=== PATIENT | female | born 1990 | race Hispanic/Latino ===

== ENCOUNTER 2016-04-26 13:15 | Emergency (ER) | payer BC ==
[2016-04-26 15:41] LABS: Bilirubin Negative (Negative); Blood, Urine Moderate (Negative); Glucose, Urine (Dipstick) Negative (Negative); Ketone, Urine Negative (Negative); Nitrite Negative (Negative); Protein, Urine (Dipstick) Negative (Neg-Trace); Urobilinogen 0.2 mg/dL (0.2-1.0)
[2016-04-26 15:48] LABS: Bacteria/HPF 1+ HPF (None Seen); RBC/HPF 0-3 HPF (0-3); Squamous Epithelial 0-3 HPF (0-3); WBC/HPF 0-3 HPF (0-3)
--- NOTE | 2016-04-26 16:53 | ERRECORD ---
[facility] EMERGENCY RECORD HPI VAGINAL BLEEDING (15:22 DHAM) CHIEF COMPLAINT: Patient presents for evaluation of vaginal bleeding. HISTORIAN: History provided by patient. LOCATION: No localizing symptoms. QUALITY: Bleeding quality described as bright red, no clots, no tissue, Pads saturated in 24 hours: 1, no pain at all. SEVERITY: Current severity of pain rated as 0/10. TIME COURSE: Sudden onset of symptoms, 3, hours prior to arrival, Symptoms have resolved, spotted "about a month ago" after intercourse. ASSOCIATED WITH: No associated symptoms. MODIFYING FACTORS: Patient , Last period date: 11/14/2015, Estimated Estimated Conception: 11/28/2015 Estimated Due date: 08/20/2016 Estimated age: 23 weeks, 3 days, Patient known to be , Patient 2nd or 3rd Trimester, : 0, Para: 0. EXACERBATED BY: Patient's condition exacerbated by nothing. RELIEVED BY: Patient's condition relieved by time. RISK FACTORS: Ectopic risk factors:, not applicable for this patient. ROS (15:25 DHAM) CONSTITUTIONAL: Negative constitutional review of systems, Historian denies chills, denies fatigue, denies fever. EYES: Negative eye review of systems. ENT: Negative ears, nose, throat review of systems. CARDIOVASCULAR: Negative cardiovascular review of systems, Historian denies chest pain, denies diaphoresis, denies exercise intolerance, denies palpitations. RESPIRATORY: Negative respiratory review of systems, Historian denies cough, denies shortness of breath, denies sputum, denies wheezing. GI: Negative gastrointestinal review of systems, Historian denies abdominal pain, denies anorexia, denies appetite changes, denies nausea, denies vomiting. GENITOURINARY FEMALE: Historian denies dysuria, denies frequency, denies hesitancy, reports vaginal bleeding, denies vaginal discharge, denies vaginal itching. passed "about a 1/2 cup of bright red blood" but just spotting the next hour and has stopped now. Still good movement. No sexual activity in the last month as she did spot about one month ago after intercourse. MUSCULOSKELETAL: Negative musculoskeletal review of systems, Historian denies arthralgias, denies injury, denies myalgias. SKIN: Negative skin review of systems, Historian denies rash, denies skin lesions. NEUROLOGIC: Negative neurologic review of systems, Historian denies confusion, denies headache. ENDOCRINE: Negative endocrine review of systems. HEMO/LYMPHATIC: Historian denies abnormal blood clotting, denies anemia, denies easy bruising, denies gum bleeding. &a-1R&a+25V*p+0X*g9094E*c202B*c15G*c2P*p-0X&a-25V&a+1R Name: Alyssa Warner : 1990 F26 MedRec: [id number] AcctNum: [id number] Prepared: Sat Apr 26, 2016 16:50 by Interface Page 1 of 4 pMD [facility] EMERGENCY RECORD ALLERGIC/IMMUNOLOGIC: Historian denies eczema, denies frequent infections, denies hives. PAST MEDICAL HISTORY MEDICAL HISTORY: No past medical history. (13:28 RHIC) FEMALE SURGICAL HISTORY: Patient has no surgical history. (13:28 RHIC) PSYCHIATRIC HISTORY: No previous psychiatric history. (13:28 RHIC) SOCIAL HISTORY: Patient denies alcohol use, Patient denies drug use, Patient has no smoking history. (13:28 RHIC) NOTES: I have reviewed the nursing documentation regarding PMHX, social hx, family hx, and surgical history as well as vitals and triage notes and agree. (15:29 [facility]) KNOWN ALLERGIES No Known Drug Allergies CURRENT MEDICATIONS No recorded medications VITAL SIGNS VITAL SIGNS: BP: 118/77, Pulse: 114, Resp: 20, Pain: 0, O2 sat: 99 on Room Air, Time: 04/26/2016 13:21. (13:21 RHIC) Pulse: 95, Pain: 0, O2 sat: 100, Time: 04/26/2016 13:30. (13:30 RHIC) BP: 109/72, Pulse: 98, Resp: 20, Pain: 0, O2 sat: 99 on Room Air, Time: 04/26/2016 14:19. (14:19 AHOO) BP: 104/74, Pulse: 97, Resp: 18, Pain: 0, O2 sat: 97 on Room Air, Time: 04/26/2016 15:18. (15:18 AHOO) BP: 104/72, Pulse: 93, Resp: 18, Temp: 96.8 (Oral), Pain: 0, O2 sat: 97 on Room Air, Time: 04/26/2016 16:37. (16:37 AHOO) PHYSICAL EXAM (15:46 DHAM) CONSTITUTIONAL: Vital Signs Reviewed, Patient afebrile, Pulse normal, Blood pressure normal, Respiratory rate normal, Normal pulse oximetry, Patient appears non toxic, Patient appears pain free, Patient alert and oriented to person, place and time, Nursing notes reviewed. HEAD: Head exam included findings of head atraumatic, normocephalic. EYES: Eye exam included findings of eyelids normal to inspection, Pupils equally round and reactive to light, Extraocular muscles intact, Conjunctiva normal, Sclera normal, Eye exam included findings of anterior chamber clear. ENT: Ear exam normal, Nose exam normal, Pharynx exam normal, Uvula exam normal, Tonsil exam normal, Mouth exam normal, mucous membranes moist, no drooling, no lesions, no lacerations, no tongue elevation. NECK: Neck exam included findings of normal range of motion, Trachea midline, Thyroid normal, no meningeal signs, no cervical &a-1R&a+25V*p+0X*l3935Z*c202B*c15G*c2P*p-0X&a-25V&a+1R Name: Alyssa Warner : 1990 F26 MedRec: [id number] AcctNum: [id number] Prepared: Sat Apr 26, 2016 16:50 by Interface Page 2 of 4 pMD [facility] EMERGENCY RECORD adenopathy, no tenderness. RESPIRATORY CHEST: Breath sounds clear, No wheezing, No rales, No rhonchi. CARDIOVASCULAR: Cardiovascular exam included findings of heart rate regular rate and rhythm, Heart sounds normal, normal S1, normal S2, no murmurs, no rub, no gallop. ABDOMEN FEMALE: Abdominal exam included findings of abdomen nontender, Bowel sounds normal, Liver normal, Spleen normal, no distension, no pulsatile masses, no peritoneal signs, no rigidity, no guarding, no rebound, normal, nontender, 24 week fundus. fht is 155. GENITOURINARY FEMALE: External genitalia normal. PELVIC: Pelvic exam normal, Speculum exam normal, no active bleeding, no lesions, no lacerations, no discharge, mildly friable appearing cervix, Bimanual exam abnormal, bimanual exam not performed. no cervical samples obtained, Urethral exam normal, no blood at meatus, no lesions, no edema, no prolapse, Exam findings include no complain of lower abdominal pain, no vaginal bleeding present, no blood in the vault. cervix appears closed. BACK: Back exam included findings of normal inspection, range of motion normal, no tenderness, no costovertebral angle tenderness. UPPER EXTREMITY: Upper extremity exam normal. LOWER EXTREMITY: Lower extremity exam normal. NEURO: Neuro exam normal. SKIN: Skin exam included findings of skin warm, dry, and normal in color, no rash. LYMPHATIC: Lymphatic exam normal. PSYCHIATRIC: Psychiatric exam included findings of patient oriented to person place and time, Normal affect, Judgment normal, Insight normal, Remote memory normal, Recent memory normal, Concentration normal. DOCTOR NOTES (15:53 DHAM) TEXT: Pt has been here for over 2 hours with normal vital signs and no blood in the vaginal vault. We likely need to r/o placenta previa and even abruption though without pain or h/o trauma, this is less likely. We have called the transfer center for transfer to OB for further eval. Her insurance requires transfer to the [facility] and that is fine with her as well. I have discussed the pt with Dr. Bradford at 1627 who accepts the pt in transfer. She appears very stable and I believe pt can transfer via POV. PROBLEM LIST No recorded problems DIAGNOSIS (16:27 DHAM) FINAL: PRIMARY: second trimester vaginal bleeding. PRESCRIPTION &a-1R&a+25V*p+0X*m2896P*c202B*c15G*c2P*p-0X&a-25V&a+1R Name: Alyssa Warner : 1990 F26 MedRec: [id number] AcctNum: [id number] Prepared: Sat Apr 26, 2016 16:50 by Interface Page 3 of 4 pMD [facility] EMERGENCY RECORD No recorded prescriptions DISPOSITION PATIENT: Disposition Type: Discharge, Disposition: *Discharge Home. (16:27 DHAM) Disposition Type: Transfer, Disposition: [facility]. (16:28 DHAM) Patient left the department. (16:49 OO) Rodriguez: AHOO=LINSEY Weber, Carmen BELTRAN=MD Champ, Jaspreet POMPA=VICKI Franklin, Omaira &a-1R&a+25V*p+0X*s3136W*c202B*c15G*c2P*p-0X&a-25V&a+1R Name: Alyssa Warner : 1990 F26 MedRec: [id number] AcctNum: [id number] Prepared: Marshal Apr 26, 2016 16:50 by Interface Page 4 of 4 pMD MTDD
--- NOTE | 2016-04-26 16:59 | PICIS ---
[facility] EMERGENCY RECORD TRIAGE ([facility] Apr 26, 2016 13:26 RHIC) TRIAGE NOTES: 24 WEEKS , VAGINAL BLEEDING. 1ST . DUE DATE AUGUST 13, 2016. 24 WEEKS . ([facility] Apr 26, 2016 13:26 RHIC) PATIENT: NAME: Alyssa Handy, AGE: 26, GENDER: female, : Thu1990, TIME OF GREET: Sat Apr 26, 2016 13:16, PREFERRED LANGUAGE: Armenian, ETHNICITY: or , ECODE BILLING MAP: [facility], SSN: [id number], Zip Code: [id number], PHONE: , , , PERSON ID: [id number], PAYMENT: HUBER Patiño, PCP: Agueda TORRE ROLAND. (Sat Apr 26, 2016 13:26 RHIC) KG WEIGHT: 59 (est.). (13:27 RHIC) COMPLAINT: VAGINAL BLEED . (13:27 RHIC) ADMISSION: URGENCY: 3 Urgent, ADMISSION SOURCE: Home, TRANSPORT: CAR, BED: WAIT. (Sat Apr 26, 2016 13:26 RHIC) ASSESSMENT: Assessment: MOM STATES WHEN ON THE COMODE URINATING AT 11:00AM FELT A "GUSH" OF BLOOD. STATES BLOOD WAS IN THE TOILET. NOW SPOTTING. NO HEAVEY BLEEDING, NO CRAMPING. (13:30 RHIC) IMMUNIZATIONS: Flu vaccine up to date, Tetanus not up to date. (13:28 RHIC) SIRS SCORING: Heart Rate 110-139 (2), Temp range 96.8-101.1 (0), respiratory rate 12-24 (0), Mental Status altered: no (0), Total SIRS Score 2. (13:28 RHIC) TRIAGE SCREENING: Patient denies suicidal ideation, Patient denies presence of domestic violence. (13:28 RHIC) LMP: Last menstrual period: 11/14/2015, Estimated conception 11/28/2015, Estimated due date 08/20/2016, Estimated age 23 weeks, 3 days, , P: 0, AB: 0. (13:28 RHIC) TREATMENTS IN PROGRESS: Treatments given Prehospital: NONE. (13:28 RHIC) PROVIDERS: TRIAGE NURSE: Omaira Franklin RN. (Sat Apr 26, 2016 13:26 RHIC) VITAL SIGNS: BP 118/77, Pulse 114, Resp 20, Pain 0, O2 Sat 99, on Room Air, Time 04/26/2016 13:21. (13:21 RHIC) KNOWN ALLERGIES No Known Drug Allergies CURRENT MEDICATIONS No recorded medications VITAL SIGNS VITAL SIGNS: BP: 118/77, Pulse: 114, Resp: 20, Pain: 0, O2 sat: 99 on Room Air, Time: 04/26/2016 13:21. (13:21 RHIC) Pulse: 95, Pain: 0, O2 sat: 100, Time: 04/26/2016 13:30. (13:30 RHIC) BP: 109/72, Pulse: 98, Resp: 20, Pain: 0, O2 sat: 99 on Room Air, Time: 04/26/2016 14:19. (14:19 AHOO) BP: 104/74, Pulse: 97, Resp: 18, Pain: 0, O2 sat: 97 on Room Air, Time: 04/26/2016 15:18. (15:18 AHOO) BP: 104/72, Pulse: 93, Resp: 18, Temp: 96.8 (Oral), Pain: 0, O2 sat: 97 &a-1R&a+25V*p+0X*t4395O*c202B*c15G*c2P*p-0X&a-25V&a+1R Name: Alyssa Warner : 1990 F26 MedRec: [id number] AcctNum: [id number] Prepared: Sat Apr 26, 2016 22:57 by Interface Page 1 of 6 pMD [facility] EMERGENCY RECORD on Room Air, Time: 04/26/2016 16:37. (16:37 AHOO) NURSING ASSESSMENT: ABDOMEN (13:30 RHIC) CONSTITUTIONAL: Patient arrives ambulatory, Gait steady, History obtained from patient, Patient appears comfortable, Patient cooperative, Patient alert, Oriented to person, place and time, Skin warm, Skin dry, Skin normal in color, Mucous membranes pink, Mucous membranes moist, Patient is well-groomed. PAIN: Patient rates pain as 0 out of 10. LMP: : 1, Para: 0, Abortions: 0, Patient confirms , Notes: STRONG HEART TONES AT ~155. PATIENT STATES SHE FEELS MOVEMENT. IN NAD. VITAL SIGNS: Pulse: 95, Pain: 0, O2 sat: 100. NURSING PROCEDURE: NURSE NOTES (16:02 RHIC) NURSES NOTES: Notes: patient in NAD family at bs. NURSING PROCEDURE: TRANSFER TRANSFER: Notes: CALLED THE TRANSFER CENTER AND SPOKE WITH CHRISTINA SHE STATED WE DO NOT TAKE HER CURRENT INSURANCE SO CHRISTINA IS CALLING THE MED TO TRANSFER HER THERE PER PT CHOOSE. (15:52 AHOO) Notes: STILL WAITING ON TRANSFER CENTER TO CALL US BACK WITH CS ON THE PHONE. (16:04 AHOO) Notes: CHRISTINA WTH THE TRANSFER CENTER CALLED AND SAID THE CS MED IS REQUESTING A PT FACESHEET SO I FAXED THE FACESHEET OVER THEY REQUESTED AND RECEIVED A CONFIRMATION THAT IT WAS SENT SUCCESSFULLY. (16:21 AHOO) Notes: TRANSFER CENTER CALLED BACK ZORAN NGUYEN FROM THE MED ON THE PHONE THEY DID A DOCTOR TO DOCTOR THEY SAID THEY WOULD HAVE TO CALL US BACK AGAIN, STILL NO ACCEPTANCE AT THIS TIME. (16:26 AHOO) Reason for transfer need for specialized care, Diagnosis: SECOND TRIMESTER VAG BLEEDING, Accepting institution: [facility], Accepting physician: DR GARDUNO, Referring physician: DR CARDOZA, Transported by private vehicle, accompanied by emergency medical services personnel, Summary of Care printed, Copy of patient record prepared for receiving facility, Copy of diagnostic studies, Medication reconciliation form prepared and sent to receiving facility, Patient consent for transfer signed, Family member contacted, PT SPOUSE AT BEDSIDE, Notes: 1630 DR GARDUNO ACCEPTED, 1632 ACCEPTING AD IS ABEL STEVE PT GOING TO L&D ROOM 1, PT DISCHARGED 1640 INSTRUCTED TO GO STRAIGHT TO THE MED AND SHE AND HER SPOUSE VERBALIZED UNDERSTANDING AND COMPLIANCE. (16:40 AHOO) Report called to receiving facility, DELIA COHEN, Provided opportunity to answer questions, Bed assigned LABOR AND DELIVERY ROOM 1. (16:44 AHOO) ORDER DETAILS Order Name: Urinalysis with Microscopic, Status: Active, Time: 15:25 &a-1R&a+25V*p+0X*o5067R*c202B*c15G*c2P*p-0X&a-25V&a+1R Name: Alyssa Warner : 1990 F26 MedRec: [id number] AcctNum: [id number] Prepared: Sat Apr 26, 2016 22:57 by Interface Page 2 of 6 pMD [facility] EMERGENCY RECORD 04/26/2016, User: DEVIN, - Ordered for: MD Cardoza Darren, - Entered by: MD Cardoza Darren - Sat Apr 26, 2016 15:25, - Quantity: 1. HPI VAGINAL BLEEDING (15:22 DHA) CHIEF COMPLAINT: Patient presents for evaluation of vaginal bleeding. HISTORIAN: History provided by patient. LOCATION: No localizing symptoms. QUALITY: Bleeding quality described as bright red, no clots, no tissue, Pads saturated in 24 hours: 1, no pain at all. SEVERITY: Current severity of pain rated as 0/10. TIME COURSE: Sudden onset of symptoms, 3, hours prior to arrival, Symptoms have resolved, spotted "about a month ago" after intercourse. ASSOCIATED WITH: No associated symptoms. MODIFYING FACTORS: Patient , Last period date: 11/14/2015, Estimated Estimated Conception: 11/28/2015 Estimated Due date: 08/20/2016 Estimated age: 23 weeks, 3 days, Patient known to be , Patient 2nd or 3rd Trimester, : 0, Para: 0. EXACERBATED BY: Patient's condition exacerbated by nothing. RELIEVED BY: Patient's condition relieved by time. RISK FACTORS: Ectopic risk factors:, not applicable for this patient. ROS (15:25 DHA) CONSTITUTIONAL: Negative constitutional review of systems, Historian denies chills, denies fatigue, denies fever. EYES: Negative eye review of systems. ENT: Negative ears, nose, throat review of systems. CARDIOVASCULAR: Negative cardiovascular review of systems, Historian denies chest pain, denies diaphoresis, denies exercise intolerance, denies palpitations. RESPIRATORY: Negative respiratory review of systems, Historian denies cough, denies shortness of breath, denies sputum, denies wheezing. GI: Negative gastrointestinal review of systems, Historian denies abdominal pain, denies anorexia, denies appetite changes, denies nausea, denies vomiting. GENITOURINARY FEMALE: Historian denies dysuria, denies frequency, denies hesitancy, reports vaginal bleeding, denies vaginal discharge, denies vaginal itching. passed "about a 1/2 cup of bright red blood" but just spotting the next hour and has stopped now. Still good movement. No sexual activity in the last month as she did spot about one month ago after intercourse. MUSCULOSKELETAL: Negative musculoskeletal review of systems, Historian denies arthralgias, denies injury, denies myalgias. SKIN: Negative skin review of systems, Historian denies rash, denies skin lesions. &a-1R&a+25V*p+0X*c0902C*c202B*c15G*c2P*p-0X&a-25V&a+1R Name: Alyssa Warner : 1990 F26 MedRec: [id number] AcctNum: [id number] Prepared: Marshal Apr 26, 2016 22:57 by Interface Page 3 of 6 pMD [facility] EMERGENCY RECORD NEUROLOGIC: Negative neurologic review of systems, Historian denies confusion, denies headache. ENDOCRINE: Negative endocrine review of systems. HEMO/LYMPHATIC: Historian denies abnormal blood clotting, denies anemia, denies easy bruising, denies gum bleeding. ALLERGIC/IMMUNOLOGIC: Historian denies eczema, denies frequent infections, denies hives. PAST MEDICAL HISTORY MEDICAL HISTORY: No past medical history. (13:28 RHIC) FEMALE SURGICAL HISTORY: Patient has no surgical history. (13:28 RHIC) PSYCHIATRIC HISTORY: No previous psychiatric history. (13:28 RHIC) SOCIAL HISTORY: Patient denies alcohol use, Patient denies drug use, Patient has no smoking history. (13:28 RHIC) NOTES: I have reviewed the nursing documentation regarding PMHX, social hx, family hx, and surgical history as well as vitals and triage notes and agree. (15:29 DHAM) PHYSICAL EXAM (15:46 DHAM) CONSTITUTIONAL: Vital Signs Reviewed, Patient afebrile, Pulse normal, Blood pressure normal, Respiratory rate normal, Normal pulse oximetry, Patient appears non toxic, Patient appears pain free, Patient alert and oriented to person, place and time, Nursing notes reviewed. HEAD: Head exam included findings of head atraumatic, normocephalic. EYES: Eye exam included findings of eyelids normal to inspection, Pupils equally round and reactive to light, Extraocular muscles intact, Conjunctiva normal, Sclera normal, Eye exam included findings of anterior chamber clear. ENT: Ear exam normal, Nose exam normal, Pharynx exam normal, Uvula exam normal, Tonsil exam normal, Mouth exam normal, mucous membranes moist, no drooling, no lesions, no lacerations, no tongue elevation. NECK: Neck exam included findings of normal range of motion, Trachea midline, Thyroid normal, no meningeal signs, no cervical adenopathy, no tenderness. RESPIRATORY CHEST: Breath sounds clear, No wheezing, No rales, No rhonchi. CARDIOVASCULAR: Cardiovascular exam included findings of heart rate regular rate and rhythm, Heart sounds normal, normal S1, normal S2, no murmurs, no rub, no gallop. ABDOMEN FEMALE: Abdominal exam included findings of abdomen nontender, Bowel sounds normal, Liver normal, Spleen normal, no distension, no pulsatile masses, no peritoneal signs, no rigidity, no guarding, no rebound, normal, nontender, 24 week fundus. fht is 155. GENITOURINARY FEMALE: External genitalia normal. &a-1R&a+25V*p+0X*i9344X*c202B*c15G*c2P*p-0X&a-25V&a+1R Name: Alyssa Warner : 1990 F26 MedRec: [id number] AcctNum: [id number] Prepared: Marshal Apr 26, 2016 22:57 by Interface Page 4 of 6 pMD [facility] EMERGENCY RECORD PELVIC: Pelvic exam normal, Speculum exam normal, no active bleeding, no lesions, no lacerations, no discharge, mildly friable appearing cervix, Bimanual exam abnormal, bimanual exam not performed. no cervical samples obtained, Urethral exam normal, no blood at meatus, no lesions, no edema, no prolapse, Exam findings include no complain of lower abdominal pain, no vaginal bleeding present, no blood in the vault. cervix appears closed. BACK: Back exam included findings of normal inspection, range of motion normal, no tenderness, no costovertebral angle tenderness. UPPER EXTREMITY: Upper extremity exam normal. LOWER EXTREMITY: Lower extremity exam normal. NEURO: Neuro exam normal. SKIN: Skin exam included findings of skin warm, dry, and normal in color, no rash. LYMPHATIC: Lymphatic exam normal. PSYCHIATRIC: Psychiatric exam included findings of patient oriented to person place and time, Normal affect, Judgment normal, Insight normal, Remote memory normal, Recent memory normal, Concentration normal. EVENTS TRANSFER: Triage to Emergency Waiting. (Sat Apr 26, 2016 13:26 RHIC) Emergency Waiting to Emergency Room -03. (13:42 RHIC) Removed from Emergency Emergency Room -03. (16:49 AHOO) O2SAT INTERPRETATION (15:29 DHAM) O2SAT: Continuous pulse oximetry, Oxygen saturation 97%, on room air, Oxygen saturation interpretation: Normal, No intervention required. DOCTOR NOTES (15:53 DHAM) TEXT: Pt has been here for over 2 hours with normal vital signs and no blood in the vaginal vault. We likely need to r/o placenta previa and even abruption though without pain or h/o trauma, this is less likely. We have called the transfer center for transfer to OB for further eval. Her insurance requires transfer to the [facility] and that is fine with her as well. I have discussed the pt with Dr. Bradford at 1627 who accepts the pt in transfer. She appears very stable and I believe pt can transfer via POV. PROBLEM LIST No recorded problems DIAGNOSIS (16:27 DHAM) FINAL: PRIMARY: second trimester vaginal bleeding. DISPOSITION PATIENT: Disposition Type: Discharge, Disposition: *Discharge &a-1R&a+25V*p+0X*m3073P*c202B*c15G*c2P*p-0X&a-25V&a+1R Name: Alyssa Warner : 1990 F26 MedRec: [id number] AcctNum: [id number] Prepared: Sat Apr 26, 2016 22:57 by Interface Page 5 of 6 pMD [facility] EMERGENCY RECORD Home. (16:27 DHAM) Disposition Type: Transfer, Disposition: [facility]. (16:28 DHAM) Patient left the department. (16:49 AHOO) PRESCRIPTION No recorded prescriptions IMAGING CONSENTS: Image captured from scanner. (16:36 AHOO) *MEMORANDUM OF TRANSFER: Image captured from scanner. (16:37 AHOO) *SUPPLY CHARGE SHEET: Image captured from scanner. (16:41 AHOO) ADMIN (22:49 DHAM) DIGITAL SIGNATURE: MD Cardoza Darren. RESULTS (15:50 DHAM) LABORATORY: Urinalysis with Microscopic Collection DT: Sat Apr 26, 2016 15:37, Color Yellow , Range (Yellow), Clarity Cloudy , Range (Clear), Specific [place], Urine 1.010 , Range (1.005-1.030), pH, Urine 6.0 , Range (5.0-9.0), *Leukocyte Small - H , Range (Negative), Nitrite Negative , Range (Negative), Protein, Urine (Dipstick) Negative mg/dL, Range (Neg-Trace), Glucose, Urine (Dipstick) Negative mg/dL, Range (Negative), Ketone, Urine Negative mg/dL, Range (Negative), Urobilinogen 0.2 mg/dL, Range (0.2-1.0), Bilirubin Negative , Range (Negative), *Blood, Urine Moderate - H , Range (Negative), RBC/HPF 0-3 HPF, Range (0-3), WBC/HPF 0-3 HPF, Range (0-3), Squamous Epithelial 0-3 HPF, Range (0-3), *Bacteria/HPF 1+ - H HPF, Range (None Seen). Rodriguez: AHOO=LINSEY Weber, July DHAM=MD Cardoza Darren RHIC=VICKI Franklin, Omaira &a-1R&a+25V*p+0X*w0668G*c202B*c15G*c2P*p-0X&a-25V&a+1R Name: Alyssa Warner : 1990 F26 MedRec: [id number] AcctNum: [id number] Prepared: Sat Apr 26, 2016 22:57 by Interface Page 6 of 6 pMD MTDD
== END 2016-04-26 16:40 | disposition short-term general hospital (02) ==
LOC: BURERS 13:15
DX: O46.92 Antepartum hemorrhage, unspecified, second trimester (principal); Z3A.24 24 weeks gestation of pregnancy
CPT/HCPCS: 81001; 99284

== ENCOUNTER 2016-12-17 09:06 | Outpatient (CLI) | payer BC ==
--- NOTE | 2016-12-18 07:53 | RAD ---
LUMBAR SPINE THREE VIEWS 12/17/16 No fracture, dislocation, or disc space narrowing was seen. No bony anomalies were noted. The SI kamilla nts are symmetrical. IMPRESSION: No significant findings. POS: HOME
== END 2016-12-17 09:07 | disposition home or self-care (01) ==
LOC: BURRAD 09:06
PROVIDERS: ATTEND Physician Assistant
DX: M54.5 Low back pain (principal)
CPT/HCPCS: 72100

== ENCOUNTER 2021-04-03 09:12 | Outpatient (CLI) | payer OTHER ==
[2021-04-03 09:39] LABS: #Basophils 0.1 thou/uL (0.0-0.2); #Monocytes 0.4 thou/uL (0.11-0.59); #Neutrophils 3.4 thou/uL (1.40-6.50); %Basophils 1.1 % (0.0-1.0); %Eosinophils 0.7 % (0.0-10.0); %Lymphocytes 34.1 % (21.0-51.0); %Neutrophils 57.2 % (42.0-75.0); Hemoglobin 12.3 g/dL (12.0-16.0); Mean Corpuscular HGB CONC 34.2 g/dL (32.0-36.0); Mean Corpuscular Hemoglobin 29.9 pg (27.0-31.0); Mean Corpuscular Volume 87.3 fL (78.0-98.0); Mean Platelet Volume 6.5 fL (7.4-10.4); Platelet Count 304 thou/uL (130-400); Red Blood Cell (RBC) Count 4.12 mill/uL (4.20-5.40)
== END 2021-04-03 09:13 | disposition home or self-care (01) ==
LOC: BURLAB 09:12
PROVIDERS: ATTEND Physician Assistant
DX: R79.89 Other specified abnormal findings of blood chemistry (principal)
CPT/HCPCS: 36415; 83540; 85025